=== PATIENT | male | born 1970 | race Caucasian/White ===

== ENCOUNTER 2019-03-09 22:31 | Emergency (ER) | payer BC ==
[~2019-03-09] VITALS: Ht 177.8 cm; Wt 102.1 kg
[2019-03-09] MEDS ORDERED: LISINOPRIL2.5 MG PO (23:54)
[2019-03-10] MEDS ORDERED: TRAMADOL 50 MG50 MG PO (01:05)
[2019-03-10] MEDS ORDERED: NAPROSYN500 MG PO (01:05)
[2019-03-10 01:16] VITALS: BP 145/64
== END 2019-03-10 01:18 | disposition home or self-care (01) ==
LOC: ER 22:31
DX: S92.354A Nondisplaced fracture of fifth metatarsal bone, right foot, initial encounter for closed fracture (principal); I10 Essential (primary) hypertension; X58.XXXA Exposure to other specified factors, initial encounter; Y93.89 Activity, other specified; Y92.89 Other specified places as the place of occurrence of the external cause; Y99.8 Other external cause status